=== PATIENT | male | born 1990 | race African-American/Black ===

== ENCOUNTER 2018-11-15 21:03 | Emergency (ER) | payer MEDICAID, OTHER ==
[~2018-11-15] VITALS: Ht 182.9 cm; Wt 69.0 kg
[2018-11-15 21:32] VITALS: BP 129/71
== END 2018-11-16 01:10 | disposition left against medical advice (07) ==
LOC: ER 21:03
DX: Z53.21 Procedure and treatment not carried out due to patient leaving prior to being seen by health care provider (principal)

== ENCOUNTER 2023-11-07 18:31 | Emergency (ER) | payer SELFPAY ==
[~2023-11-07] VITALS: Ht 177.8 cm; Wt 75.0 kg
[2023-11-07 18:38] VITALS: BP 135/86; RESP 18; TEMP 98.5; O2SAT 100
[2023-11-07 18:50] VITALS: PULSE 130
[2023-11-07] MEDS ORDERED: CEPH500T MT (19:49)
[2023-11-07] MEDS ORDERED: CLOT45CR62 VG (19:50)
== END 2023-11-07 19:20 | disposition home or self-care (01) ==
LOC: ER 18:43
DX: L03.031 Cellulitis of right toe (principal); B35.4 Tinea corporis; F41.9 Anxiety disorder, unspecified; I10 Essential (primary) hypertension; F14.10 Cocaine abuse, uncomplicated; F15.10 Other stimulant abuse, uncomplicated
CPT/HCPCS: 73630; 99283

== ENCOUNTER 2023-11-10 16:23 | Emergency (ER) | payer SELFPAY ==
[~2023-11-10] VITALS: Ht 177.8 cm; Wt 72.0 kg
[~2023-11-10 16:23] MED LIST: CEPH500T MT; CLOT45CR62 VG
[2023-11-10 16:45] VITALS: BP 150/80; PULSE 95; RESP 20; TEMP 98.2; O2SAT 100
== END 2023-11-10 20:00 | disposition left against medical advice (07) ==
LOC: ER 16:23
DX: M79.674 Pain in right toe(s) (principal); Z53.21 Procedure and treatment not carried out due to patient leaving prior to being seen by health care provider

== ENCOUNTER 2023-12-17 17:56 | Emergency (ER) | payer SELFPAY ==
[~2023-12-17] VITALS: Ht 182.9 cm; Wt 69.0 kg
[2023-12-17 18:10] VITALS: TEMP 98.6; O2SAT 100
[2023-12-17] MEDS ORDERED: PHEN51CR24 TP (19:34)
[2023-12-17] MEDS ORDERED: POLY17PO3 MT (19:35)
[2023-12-17 19:48] VITALS: BP 123/75; PULSE 66; RESP 14
== END 2023-12-17 19:48 | disposition home or self-care (01) ==
LOC: ER 17:56
DX: K64.9 Unspecified hemorrhoids (principal); F41.9 Anxiety disorder, unspecified; E11.9 Type 2 diabetes mellitus without complications; I10 Essential (primary) hypertension; F14.10 Cocaine abuse, uncomplicated; F15.10 Other stimulant abuse, uncomplicated; Z79.899 Other long term (current) drug therapy
CPT/HCPCS: 99283

== ENCOUNTER 2025-03-12 10:57 | Emergency (ER) | payer MEDICAID ==
[~2025-03-12] VITALS: Ht 182.9 cm; Wt 67.0 kg
[~2025-03-12 10:57] MED LIST changes: +PHEN51CR24 TP; +POLY17PO3 MT
[2025-03-12 10:59] VITALS: BP 143/83; PULSE 96; RESP 18; TEMP 37; O2SAT 100
== END 2025-03-12 16:02 | disposition home or self-care (01) ==
LOC: ER 10:57
DX: N48.89 Other specified disorders of penis (principal); E11.9 Type 2 diabetes mellitus without complications; I10 Essential (primary) hypertension; F10.90 Alcohol use, unspecified, uncomplicated; F12.90 Cannabis use, unspecified, uncomplicated; F15.90 Other stimulant use, unspecified, uncomplicated; Y90.9 Presence of alcohol in blood, level not specified
CPT/HCPCS: 99283